=== PATIENT | female | born 1985 | race Caucasian/White ===

== ENCOUNTER 2018-03-30 23:58 | Emergency (ER) | payer SELFPAY ==
[~2018-03-30] VITALS: Ht 160 cm; Wt 64.9 kg
[~2018-03-30 23:58] MED LIST: ANTIVERT25 MG ORAL
[2018-03-31 00:08] VITALS: BP 126/86
[2018-03-31 01:02] VITALS: BP 122/80
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
== END 2018-03-31 01:10 | disposition left against medical advice (07) ==
LOC: EMR 03-31 00:22
DX: R51 Headache (principal); M54.2 Cervicalgia; V43.52XA Car driver injured in collision with other type car in traffic accident, initial encounter; Y92.410 Unspecified street and highway as the place of occurrence of the external cause; Z88.2 Allergy status to sulfonamides; Z88.6 Allergy status to analgesic agent; Z88.0 Allergy status to penicillin
CPT/HCPCS: 99282

== ENCOUNTER 2018-03-31 09:55 | Emergency (ER) | payer BC ==
[~2018-03-31] VITALS: Ht 160 cm; Wt 64.9 kg
[2018-03-31 10:15] VITALS: BP 111/82
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
--- NOTE | 2018-03-31 12:12 | Diagnostic Imaging Report ---
INDICATION: COMPARISON: TECHNIQUE: The following sequences were obtained on a Elizabeth magnet: FINDINGS: No abnormal intra- or extra-axial collections or parenchymal lesions are seen. The shape and configuration of the cortical sulci, basal cisterns and ventricles are within normal limits. The nichols-white differentiation is preserved. No evidence of mass effect, midline shift, or edema. The visualized portions of the paranasal sinuses are clear. IMPRESSION: Normal MRI of the brain.
[2018-03-31 12:15] VITALS: BP 117/76
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
[2018-03-31 13:25] VITALS: BP 117/76
== END 2018-03-31 18:39 | disposition home or self-care (01) ==
LOC: EMR 10:28
DX: S13.9XXA Sprain of joints and ligaments of unspecified parts of neck, initial encounter (principal); V43.52XA Car driver injured in collision with other type car in traffic accident, initial encounter; Y92.410 Unspecified street and highway as the place of occurrence of the external cause; Z88.6 Allergy status to analgesic agent; Z88.2 Allergy status to sulfonamides; Z88.0 Allergy status to penicillin; R51 Headache; M50.20 Other cervical disc displacement, unspecified cervical region
CPT/HCPCS: 70551; 72141; 81025; 99284

== ENCOUNTER 2018-06-15 10:30 | Emergency (ER) | payer BC ==
[~2018-06-15] VITALS: Ht 160 cm; Wt 63.5 kg
--- NOTE | 2018-06-15 10:52 | NUR ---
ED Nurse Note: AMBULATED IN TO ER FROM HOME DUE TO LUMP ON THE LEFT SIDED ABDOMEN SINCE FOUR DAYS AGO. PT DENIES PAIN AT THIS TIME. SEEN BY PCP AND RECOMMENDED MRI BUT WAS NOT ABLE TO GET THE AUTHORIZATION FAST ENOUGH SO CAME TO ED.
--- NOTE | 2018-06-15 10:54 | NUR ---
ED Nurse Note: PT REFUSED TO BE CHANGED IN TO [facility].
[2018-06-15 10:58] VITALS: BP 117/84
--- NOTE | 2018-06-15 11:23 | NUR ---
ED Nurse Note: Pt cleared by health care Provider for discharge. DC instructions/prescription was given and explained to pt and verbalized understanding of teachings. All medical deviecs such as ID band removed. Pt is AAO x4, ambulatory and left with all personal belongings.
--- NOTE | 2018-06-15 11:32 | Emergency Room Report ---
History of Present Illness General Chief Complaint: Pain Source: Patient Present Illness HPI Patient states that about 4 days ago she noted a smooth a lump in the left part of her abdomen. She states that she did see her primary care physician for this. He thought it was consistent with a lipoma. She states that he then referred her for an MRI of her abdomen. She presents here because she is very anxious about the lipoma. She would like to get the MRI from the emergency department. She states that she noted that it was more tender. She denies deep abdominal pain, dysuria or hematuria, fever or chills. She states she does not want and undergo a CT scan or ultrasound because she is trying to get and does not want to be exposed to radiation. She states her mom is optical technician and the did do an ultrasound and was unable to visualize the region. She does have plans to get the MRI and about 2 weeks. She states she just really wants MRI today. The patient also states that she has had neck pain that she woke up with. She denies numbness, tingling, weakness or trauma. Allergies: Coded Allergies: CEPHALEXIN (Verified Allergy, Unknown, 01/27/16) IBUPROFEN (Verified Allergy, Unknown, 03/31/18) PENICILLIN G (Verified Allergy, Unknown, 01/27/16) Uncoded Allergies: SULFA (Allergy, Unknown, 03/31/18) Patient History Past Medical History: none, see triage record Social History: Denies: smoking, alcohol use, drug use Last Menstrual Period: 05/19/2018 Reviewed Nursing Documentation: PMH: Agreed; PSxH: Agreed Nursing Documentation-PMH Past Medical History: No Stated History Review of Systems All Other Systems: negative except mentioned in HPI Physical Exam Vital Signs Date Time Temp Pulse Resp B/P (MAP) Pulse Ox O2 Delivery O2 Flow Rate FiO2 06/15/18 10:52 98.2 77 16 117/84 97 Room Air Sp02 EP Interpretation: reviewed, normal General Appearance: no apparent distress, alert, GCS 15, non-toxic Head: normocephalic, atraumatic ENT: hearing grossly normal, no angioedema, normal voice Respiratory: no respiratory distress, no retraction, no accessory muscle use, speaking full sentences Gastrointestinal: non tender, soft, non-distended, no guarding, no rebound, other - There is a smooth oval shaped mass in the Subcutaneous tissue of the L. abdomen that is c/w a lipoma. Rectal: deferred Musculoskeletal: back normal, gait/station normal, normal range of motion, non- tender Neurologic: alert, oriented x3, responsive, motor strength/tone normal, sensory intact, speech normal Psychiatric: judgement/insight normal, memory normal, mood/affect normal, no suicidal/homicidal ideation Skin: normal color, no rash, warm/dry, well hydrated Medical Decision Making Diagnostic Impression: Primary Impression: Lipoma Additional Impression: Neck pain ER Course Patient has findings on physical exam consistent with a lipoma and musculoskeletal neck pain. This is not a medical emergency and the patient does not need an emergent MRI of her abdomen. I did offer an ultrasound of the area or a CT scan. However, the patient does not want to be exposed to radiation and the patient's mother is an optical technician. I am not concerned about this area as it is most consistent with a lipoma. The patient has planned an MRI routinely as an outpatient which is appropriate. The patient has no deep internal abdominal pain all of the symptoms are in the subcutaneous tissue. There are no skin findings that make me concerned for malignancy. Overall, there is no emergency medical condition identified. Last Vital Signs Date Time Temp Pulse Resp B/P (MAP) Pulse Ox O2 Delivery O2 Flow Rate FiO2 06/15/18 10:58 98.2 77 16 117/84 97 Room Air Disposition: HOME, SELF-CARE Condition: Stable Shelly Abel DO Jun 15, 2018 11:32
== END 2018-06-15 11:35 | disposition home or self-care (01) ==
LOC: EMR 11:05
DX: D17.1 Benign lipomatous neoplasm of skin and subcutaneous tissue of trunk (principal); M54.2 Cervicalgia; Z88.0 Allergy status to penicillin; Z88.6 Allergy status to analgesic agent; Z88.2 Allergy status to sulfonamides
CPT/HCPCS: 99282